=== PATIENT | male | born 1940 | race Caucasian/White ===

== ENCOUNTER 2018-08-03 06:03 | Day surgery (SDC) | payer MEDICARE ==
[~2018-08-03] VITALS: Ht 185.4 cm; Wt 86.6 kg
[~2018-08-03 06:03] MED LIST: AMIODARONE HCL200 MG PO; BAYER CHEWABLE81 MG PO; COZAAR100 MG PO; GEMFIBROZIL600 MG PO; HCTZ25 MG PO; LOPRESSOR25 MG PO
[2018-08-03 06:36] LABS: APTT 28.6 SECONDS (22.8-39.4); INR 1.13 (0.85-1.17)
[2018-08-03 06:41] LABS: ANION GAP 13.2 mmol/L (8-16); CARBON DIOXIDE 27.9 mmol/L (21.0-32.0); CREATININE - SERUM 1.2 mg/dL (0.6-1.3); POTASSIUM - SERUM 4.1 mmol/L (3.5-5.1)
[2018-08-03 06:45] LABS: BASOPHILS 1.1 % (0-2); EOSINOPHILS 1.4 % (0-7); HEMATOCRIT 48.1 % (42.0-54.0); HEMOGLOBIN 16.7 g/dL (13.5-17.5); IMMATURE GRANULOCYTES 0.5 % (0-5); LYMPHOCYTES 26.7 % (15-50); MCHC 34.7 g/dL (31.0-37.0); MCV 89.4 fL (80.0-100.0); MEAN PLATELET VOLUME 9.5 fL (7.4-10.4); NEUTROPHILS 59.3 % (40-80); PLATELET COUNT 188 10x3/uL (130-400); RBC 5.38 10x6/uL (4.20-6.10); RDW 14.2 % (11.5-14.5); WBC 8.3 10x3/uL (4.8-10.8)
[2018-08-03 06:53] VITALS: Ht 185.4 cm; Wt 86.6 kg
[2018-08-03] MEDS ORDERED: HYDROCODON-ACE1 EA10 PO (13:59)
--- NOTE | 2018-08-03 14:30 | NUR ---
REC'D FROM RR. FAMILY AT BEDSIDE. DRESSING CDI TO RIGHT ARM. ICE PACK APPLIED. FL TRAY BROUGHT TO PT.
--- NOTE | 2018-08-03 15:00 | NUR ---
EATING FL TRAY WITH ASSIST OF HIS . NO CHANGES NOTED. NO C/O VOICED.
--- NOTE | 2018-08-03 15:30 | NUR ---
TOLERATED DIET. IV DC'D WITH CATHETER INTACT. NO C/O VOICED.
--- NOTE | 2018-08-03 15:45 | NUR ---
WRITTEN AND VERBAL DC INST GIVEN TO PT ALONG WITH RX. VERBALIZED UNDERSTANDING.
--- NOTE | 2018-08-03 16:00 | NUR ---
DC'D HOME WITH FAMILY VIA PRIVATE VEHICLE. TAKEN TO VEHICLE VIA WC. STABLE AT TIME OF DC.
--- NOTE | 2018-08-30 09:41 | OP ---
PATIENT NAME: BJ SHIPMAN MEDICAL RECORD: [id number] :40 LOCATION:[facility] ADMISSION DATE: SURGEON: HARRY MORFIN MD DATE OF OPERATION: 08/03/2018 PREOPERATIVE DIAGNOSES: 1. 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 2. Hypertension. 3. Cardiac arrhythmia. POSTOPERATIVE DIAGNOSES: 1. 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 2. Hypertension. 3. Cardiac arrhythmia. PROCEDURES: 1. Wide local excision of right arm malignancy. 2. Right axillary sentinel lymph node biopsy. SURGEON: Harry Morfin MD REPORT OF PROCEDURE: The patient underwent lymphoscintigraphy preoperatively. He was then taken to the operating room, where the right upper extremity and axilla were prepped and draped in sterile fashion. A 1.4-cm wide area of scarring was present on the right lateral forearm, just above the wrist. We marked 2 cm margins laterally and medially and dexter a line extending up and down the arm in order to extend the incision so it would not dog ear. The total width of the incision was 5.5 cm. Dissection was then excised using a #15 blade followed by electrocautery through the subcutaneous tissue, extending all the way down to the tissue overlying the fascia of the forearm musculature. Care was taken to tie off any venous structures which were encountered. These were tied off with 3-0 silk ties. There were some nerve and arterial structures which were visualized and these were protected throughout the case. Once the specimen was completely excised, it was marked and sent off for permanent. We undermined the tissue medially and laterally to facilitate closure. The tissue was then reapproximated in the midline using interrupted 3-0 Vicryls. The skin was then closed over top of this using multiple vertical mattress 2-0 nylons. There was good approximation of the tissue, but there was some tension on the tissue. At the conclusion of this, the patient had a palpable right radial pulse. We then approached the patient's right axilla. Using a Neoprobe, we found the area where the lymph node appeared to be present. A skin incision was made transversely over top of this and we dissected down through the subcutaneous tissue and fascia until we entered the axillary space. The tissue was elevated through the incision and we were able to find a single sentinel lymph node with a reading of 225. After this lymph node was removed, we inspected the area and saw no other evidence of any radiotracer uptake. We irrigated out the wound with normal saline. The subcutaneous tissues were reapproximated with interrupted 3-0 Vicryls and the skin was closed with running subcutaneous 5-0 Monocryl. A total of 10 mL of 0.25% Marcaine with epinephrine was infused into the tissues around the 2 wounds and the wounds were dressed appropriately. COMPLICATIONS: None. CONDITION: Stable. OPERATIVE REPORT [id number] BJ SHIPMAN ANESTHESIA: General endotracheal and local. BLOOD LOSS: Minimal. TRANSINT:[id number] Voice Confirmation ID: [id number] DOCUMENT ID: [id number] HARRY MORFIN MD at 0941 CC: ASHOK SERRATO MD and JIMY DIEHL [id number] DICTATION DATE: 08/03/18 1410 PUPPET MAKER: 08/03/18 1723 [facility] [place] 08/03/18 [id number] [place] [address]
== END 2018-08-03 16:00 | disposition home or self-care (01) ==
LOC: D.OPS 06:03 → D.PAN 08:00 → D.OPS 08:00
PROVIDERS: Anesthesiology; Surgery
DX: C4A.61 Merkel cell carcinoma of right upper limb, including shoulder (principal); I10 Essential (primary) hypertension; I49.9 Cardiac arrhythmia, unspecified; Z01.812 Encounter for preprocedural laboratory examination